=== PATIENT | female | born 1995 | race Caucasian/White ===

== ENCOUNTER 2016-04-27 14:24 | Outpatient (CLI) | payer OTHER ==
[~2016-04-27] VITALS: Ht 177.8 cm; Wt 100.0 kg
[2016-04-27 14:32] VITALS: Ht 177.8 cm; Wt 100.0 kg
[2016-04-27 14:33] VITALS: BP 118/69; PULSE 95; RESP 20
[2016-04-27] MEDS ORDERED: PREN1TAB79 PO (14:36)
--- NOTE | 2016-04-27 15:58 | TRIAGE ---
OB Triage Datetime Report Generated by CPN: 04/27/2016 15:58 Datetime: 04/27/2016 15:07 Maternal Assessment Level of Consciousness: Fully Conscious DTR's/Clonus: DTRs 2+ Headache: Denies Blurred Vision: No Nausea/Vomiting: Denies RUQ Epigastric Pain: Denies Facial Edema: None Labor Evaluation Frequency: IRREG Monitor Mode: External Quality: Mild Pattern: Normal: <= 5 Contractions in 10 Minutes Resting Tone Crouch: Relaxed Heart Rate FHR Baseline Rate: 145 Monitor Mode: External US FHR Baseline Changes: No Baseline Change Variability: Moderate 6-25 bpm Accelerations: 15X15 Decelerations: None Category: Category I Pain Assessment Pain Scale: 0 Pain Presence: None/Denies Datetime: 04/27/2016 14:24 Vaginal Exam Dilatation (cms): 2.0 Effacement (%): 50 Station: -2 Exam By: AVIS RN Vaginal Bleeding: None Cervix, Consistency: Soft Cervix, Position: Midposition Presentation 'A': Cephalic Datetime: 04/27/2016 14:21 Maternal Assessment Level of Consciousness: Fully Conscious DTR's/Clonus: DTRs 2+ Headache: Denies Blurred Vision: No Nausea/Vomiting: Denies RUQ Epigastric Pain: Denies Facial Edema: None Labor Evaluation Frequency: NONE AT THIS TIME Pattern: Normal: <= 5 Contractions in 10 Minutes Resting Tone Crouch: Relaxed Heart Rate FHR Baseline Rate: 145 Monitor Mode: External US FHR Baseline Changes: No Baseline Change Variability: Moderate 6-25 bpm Accelerations: 15X15 Decelerations: None Category: Category I Pain Assessment Pain Scale: 0 Pain Presence: None/Denies Pain Goal: 4 Membrane Status: Intact Datetime: 04/27/2016 14:20 Time of Arrival: 04/27/2016 14:20 EGA: 39.1 Arrived By: Ambulatory Arrived From: Home Chief Complaint: VAGINAL DISCHARGE Movement: Present Contractions: Denies/Absent Rupture of Membranes: Denies Vaginal Bleeding: None Patient Complaints: Other Time Provider Notified: 04/27/2016 14:21 Provider Notified: DR ROA Initial Plan: EFM,CALL DR ROA Datetime: 04/27/2016 14:19 Maternal Assessment Level of Consciousness: Fully Conscious DTR's/Clonus: DTRs 2+; No Clonus Headache: Denies Blurred Vision: No Respiratory Effort: Unlabored; Regular Rhythm; Equal Expansion Breath Sounds, Left: Clear and Equal Breath Sounds, Right: Clear and Equal Nausea/Vomiting: Denies RUQ Epigastric Pain: Denies Facial Edema: None Temperature Route: Axillary Fall Risk Assessment History of Falling: (0) No Secondary Diagnosis: (0) No Ambulatory Aid: (0) Bedrest/Nurse Assist IV Therapy: (0) No Gait: (0) Normal/Bedrest/Immobile Mental Status: (0) Oriented to Own Ability Fall Score: 0 Fall Risk Score Definition: No Risk: No action required
== END 2016-04-27 16:00 | disposition home or self-care (01) ==
LOC: OBT 14:24 → L-D 14:24 → OBT 16:00
DX: O26.893 Other specified pregnancy related conditions, third trimester (principal); N89.8 Other specified noninflammatory disorders of vagina; Z3A.39 39 weeks gestation of pregnancy
CPT/HCPCS: G0463

== ENCOUNTER 2016-05-01 04:15 | Inpatient (IN) | payer OTHER ==
[~2016-05-01] VITALS: Ht 177.8 cm; Wt 99.9 kg
[~2016-05-01 04:15] MED LIST: PREN1TAB79 PO
[2016-05-01 04:34] VITALS: BP 137/81; PULSE 76; RESP 20
[2016-05-01] MEDS ORDERED: LACTATED RINGER'S 1,000 ML IV SCH (04:39)
[2016-05-01] MEDS ORDERED: CARBOPROST 250 MCG INJ IM PRN ×2 (05:00→12:30)
[2016-05-01] MEDS ORDERED: OXYTOCIN 30 UNITS/LR 500 ML IV SCH (05:00)
[2016-05-01] MEDS ORDERED: METHYLERGONOVINE 0.2 MG INJ IM PRN ×2 (05:00→12:30)
[2016-05-01] MEDS ORDERED: AMPICILLIN 2 GM/NS (PMX) 100 ML IV ONE (05:00)
[2016-05-01] MEDS ORDERED: LIDOCAINE 1% (MPF) 30 ML INJ INJ PRN (05:00)
[2016-05-01] MEDS ORDERED: MISOPROSTOL 200 MCG TAB PR PRN ×2 (05:00→12:30)
[2016-05-01] MEDS ORDERED: OXYTOCIN 30 UNITS/LR 500 ML IV PRN ×2 (05:00→12:30)
[2016-05-01] MEDS ORDERED: LACTATED RINGER'S 1,000 ML IV PRN (05:00)
[2016-05-01] MEDS ORDERED: IBUPROFEN 600 MG TAB PO PRN (05:00)
[2016-05-01] MEDS ORDERED: BUTORPHANOL 2 MG INJ IV PRN (05:00)
[2016-05-01 05:16] LABS: BASOPHIL # 0.1 10^3/ul (0.0-0.1); BASOPHILS % 0.4 % (0.0-2.0); EOSINOPHILS # 0.1 10^3/ul (0.0-0.5); EOSINOPHILS % 0.4 % (0.0-7.0); HEMATOCRIT 38.9 % (37.0-47.0); HEMOGLOBIN 13.4 g/dl (12.0-16.0); LYMPHOCYTES # 2.2 10^3/ul (0.8-2.9); LYMPHOCYTES % 14.7 % (15.0-51.0); MEAN CORPUSCULAR HEMOGLOBIN 31.5 pg (29.0-33.0); MEAN CORPUSCULAR HGB CONC 34.3 g/dl (32.0-37.0); MEAN CORPUSCULAR VOLUME 91.8 fl (82.0-101.0); MEAN PLATELET VOLUME 7.7 fl (7.4-10.4); MONOCYTES % 6.5 % (0.0-11.0); NEUTROPHIL # 11.9 10^3/ul (1.6-7.5); PLATELET COUNT 226 10^3/UL (140-440); RED BLOOD COUNT 4.24 10^6/ul (4.20-5.40); RED CELL DISTRIBUTION WIDTH 13.8 % (11.5-14.5); UNCORRECTED WBC 15.3 10^3/ul (4.8-10.8); WHITE BLOOD COUNT 15.3 10^3/ul (4.8-10.8)
[2016-05-01] MEDS ORDERED: FENTAnyl 2MCG/ML-ROPIV 0.2% 100 ML ONE (05:17)
[2016-05-01 05:20] LABS: INR 0.84; PARTIAL THROMBOPLASTIN TIME 25.2 Sec (25.0-35.0); PROTIME 11.5 Sec (12.2-14.2); PT RATIO 0.9
[2016-05-01 05:25] LABS: CONDITION 1
--- NOTE | 2016-05-01 06:22 | HP ---
Date/Time of Note Date/Time of Note DATE: 05/01/16 TIME: 06:18 OB - History Hx of Present Chief Complaint: Contractions Estimated Due Date: May 03, 2016 : 1 Para: 0 Spontaneous : 0 Therapeutic : 0 Care: Other Obstetrical Complications: None Medical Complications: None Past Family/Social History * Past Medical, Surgical, Family and Obstetric Histories reviewed from chart. Blood Type: O+ OB Admission Exam Vital Signs Vital Signs Vital Signs Date Time Temp Pulse Resp B/P Pulse Ox O2 Delivery O2 Flow Rate FiO2 05/01/16 04:34 98.0 76 20 137/81 Room Air Physical Exam HEENT: WNL Heart: Rhythm Normal Lungs: Clear Abdomen: WNL Extremities: Normal Reflexes: Normal Cervical Dilatation: 9cm Effacement: 100% Station: -1 Membranes: Intact Heart Rate: 140's Accelerations: Accelerations Present Decelerations: No Decelerations Varibility: Moderate Contractions on Admission: < 5 Minutes Apart Last 72 hours Lab Results CBC & BMP 05/01/16 04:45 OB Assessment/Plan Reason for admission: active labor Plan: Expectant Management CHAGO VENTURA MD May 01, 2016 06:22
[2016-05-01] MEDS ORDERED: FENTAnyl 2MCG/ML-ROPIV 0.2% 100 ML BAG EPI SCH (06:30)
[2016-05-01] MEDS ORDERED: NALOXONE (0.4 MG/ML) INJ IV PRN (06:30)
[2016-05-01] MEDS ORDERED: AMPICILLIN 1 GM/NS (PMX) 50 ML IV SCH (09:00)
[2016-05-01] MEDS: OXYTOCIN 30 UNITS/LR 500 ML IV SCH ×4 (10:55→17:28)
--- NOTE | 2016-05-01 11:47 | OPRPT ---
Intraop Record Datetime Report Generated by CPN: 05/01/2016 11:47 Datetime: 05/01/2016 04:39 Drug Allergies/Reactions: No Known Allergy (05/01/2016) Datetime: 04/27/2016 14:35 Drug Allergies/Reactions: No Known Allergy (04/27/2016) Datetime: 04/27/2016 14:20 Drug Allergies/Reactions: NONE Food Allergies/Reactions: NONE Latex Allergies/Reactions: No Latex Allergies
--- NOTE | 2016-05-01 11:47 | DELSUM ---
Delivery Summary A-C Datetime Report Generated by CPN: 05/01/2016 11:47 DELIVERY PERSONNEL Plant Hr Manager: Reyna, Pratima MATERNAL INFORMATION Delivery Anesthesia: Epidural Placenta Cultured: No Maternal Complications: None LABOR SUMMARY EDC: 05/03/2016 00:00 No. Babies in Womb: 1 Attempted: No Labor Anesthesia: Epidural LABOR INFORMATION Reason for Induction: Not Applicable Onset of Labor: 04/30/2016 21:00 Oxytocin: N/A Group B Beta Strep: Negative Antibiotics # of Doses: 0 Steroids Given: None Reason Steroids Not Administered: Not Applicable MEMBRANES Membranes Rupture Method: Spontaneous Rupture of Membranes: 05/01/2016 08:51 Length of Rupture (hr): 1.58 Amniotic Fluid Color: Clear Amniotic Fluid Amount: Moderate Amniotic Fluid Odor: Normal STAGES OF LABOR Stage 3 hr: 0 Stage 3 min: 3 Total Time in Labor hr: 13 Total Time in Labor min: 29 VAGINAL DELIVERY Laceration Extension: First Degree Laceration Type: Perineal Laceration Repair: Yes Initial Vag Sponge Count: 20 Final Vag Sponge Count: 20 Initial Vag Sharps Count: 2 Final Vag Sharps Count: 2 Sponge Count Correct: Yes Sharps Count Correct: Yes BABY A INFORMATION Infant Delivery Date/Time: 05/01/2016 10:26 Method of Delivery: Vaginal Born in Route : No : N/A Forceps: N/A Vacuum Extraction: N/A Shoulder Dystocia : No SHOULDER DYSTOCIA BABY A Delivery Date/Time: 05/01/2016 10:26 PRESENTATION/POSITION BABY A Presentation: Cephalic Cephalic Presentation: Vertex Vertex Position: Left Occipital Anterior Breech Presentation: N/A PLACENTA INFORMATION BABY A Placenta Delivery Time : 05/01/2016 10:29 Placenta Method of Delivery: Spontaneous Placenta Status: Delivered SCORES BABY A Heart Rate 1 min: >100 bpm Resp Effort 1 min: Good Cry Reflex Irritability 1 min: Cough/Sneeze/Pulls Away Muscle Tone 1 min: Active Motion Color 1 min: Body [place], Extremit Blue Resuscitation Effort 1 min: Tactile Stimulation SCORE 1 MIN: 9 Heart Rate 5 min: >100 bpm Resp Effort 5 min: Good Cry Reflex Irritability 5 min: Cough/Sneeze/Pulls Away Muscle Tone 5 min: Active Motion Color 5 min: Body [place], Extremit Blue Resuscitation Effort 5 min: Tactile Stimulation SCORE 5 MIN: 9 INFORMATION BABY A Gestational Age at Delivery: 39.5 Gestational Status: Full Term- 39- 40.6 Weeks Infant Outcome : Liveborn Infant Condition : Stable Sex: Female IDENTIFICATION/MEDS BABY A ID Band Number: [id number] ID Band Location: Right Leg; Left Arm Sensor Applied: Yes Sensor Number: [id number] Sensor Location : Cord Clamp Vitamin K Given : Not Given Erythromycin Given: Not Given WEIGHT/LENGTH BABY A Infant Birthweight (gm): 3775 Weight (lb): 8 Weight (oz): 5 CORD INFORMATION BABY A No. Cord Vessels: 3 Nuchal Cord : N/A Cord Blood Taken: Yes Infant Suction: Mouth; Nose ASSESSMENT BABY A Complications: Multiple Variable Decels Physical Findings at Delivery: Within Normal Limits Respirations: Appears Normal Application Support Consultant/ALS Called : No Transferred To: Remains with Mother
[2016-05-01 12:10] VITALS: BP 115/57; PULSE 74; RESP 18
--- NOTE | 2016-05-01 12:29 | DELSUM ---
Delivery Summary A-C Datetime Report Generated by FRANKY: 05/01/2016 12:29 Estimated Blood Loss (ml): 250 Length of Rupture (hr): 1.58 Stage 3 hr: 0 Stage 3 min: 3 Total Time in Labor hr: 13 Total Time in Labor min: 29 SCORE 1 MIN: 9 SCORE 5 MIN: 9 Gestational Status: Full Term- 39- 40.6 Weeks Weight (lb): 8 Weight (oz): 5
[2016-05-01] MEDS ORDERED: ONDANSETRON 4 MG INJ IV PRN (12:30)
[2016-05-01] MEDS ORDERED: LANOLIN 7 GM TUBE TOP PRN (12:30)
[2016-05-01] MEDS ORDERED: BENZOCAINE 20% 56 ML SPRAY TOP PRN (12:30)
[2016-05-01] MEDS ORDERED: OXYCODONE/ASPIRIN (4.88/325) TAB PO PRN ×2 (12:30)
[2016-05-01] MEDS ORDERED: ACETAMINOPHEN 325 MG TAB PO PRN (12:30)
[2016-05-01] MEDS ORDERED: DIBUCAINE 1% 30 GM OINT TOP PRN (12:30)
[2016-05-01] MEDS ORDERED: ACETAMINOPHEN/CODEINE #3 TAB PO PRN ×2 (12:30)
[2016-05-01] MEDS ORDERED: WITCH HAZEL/GLYCERIN PAD PR PRN (12:30)
[2016-05-01] MEDS: IBUPROFEN 600 MG TAB PO SCH ×3 (12:30→23:33)
[2016-05-01 14:05] LABS: BARBITURATES Negative (NEGATIVE); BENZODIAZEPINES Negative (NEGATIVE)
[2016-05-01 14:06] LABS: CANNABINOIDS Negative (NEGATIVE)
[2016-05-01 14:07] LABS: COCAINE Negative (NEGATIVE); OPIATES Negative (NEGATIVE)
--- NOTE | 2016-05-01 15:38 | LDN ---
Date/Time of Note Date/Time of Note DATE: 05/01/16 TIME: 15:32 Delivery Summary Normal spontaneous vaginal delivery of a baby girl shoulders delivered without any difficulty baby's body followed cord clamped after stopped pulsation naso- oropharyngeal suction was performed baby handed to the team for immediate attention placenta spontaneous expulsion inspected complete Placenta Delivered: Spontaneously Meconium: none Perineum intact?: Yes Anesthesia type: None Sponge & Needle done & correct: Yes All needle counts correct: Yes Any foreign bodies felt in the: No Problems: Infant Delivery Information Sex Infant Sex: female Apgars 1 Minute: 9 5 Minute: 9 Suctioning Nose & mouth suctioned at costa: Yes Delee suction performed: No Umbilical Cord Umbilical cord with: 3 Vessels Cord presentations: no nuchal cord Cord Blood was obtained: Yes CARLOS ALBERTO ASKEW MD May 01, 2016 15:38
[2016-05-01 16:00] VITALS: BP 121/57; PULSE 90; RESP 18
[2016-05-01 19:40] VITALS: BP 109/61; PULSE 88; RESP 18
[2016-05-01] MEDS: SENNA/DOCUSATE NA (8.6MG/50MG) TAB PO SCH (21:28)
[2016-05-02] VITALS: BP 102/60; PULSE 89; RESP 18
[2016-05-02 04:00] VITALS: BP 99/52; PULSE 83; RESP 18
[2016-05-02] MEDS: IBUPROFEN 600 MG TAB PO SCH ×4 (05:51→23:37)
[2016-05-02 08:00] VITALS: BP 82/65; PULSE 94; RESP 20
[2016-05-02 08:28] LABS: BASOPHILS % 0.2 % (0.0-2.0); EOSINOPHILS # 0.1 10^3/ul (0.0-0.5); EOSINOPHILS % 1.2 % (0.0-7.0); HEMATOCRIT 36.6 % (37.0-47.0); HEMOGLOBIN 12.5 g/dl (12.0-16.0); LYMPHOCYTES # 2.7 10^3/ul (0.8-2.9); LYMPHOCYTES % 24.3 % (15.0-51.0); MEAN CORPUSCULAR HEMOGLOBIN 31.4 pg (29.0-33.0); MEAN CORPUSCULAR HGB CONC 34.2 g/dl (32.0-37.0); MEAN CORPUSCULAR VOLUME 91.8 fl (82.0-101.0); MEAN PLATELET VOLUME 7.4 fl (7.4-10.4); MONOCYTES % 9.2 % (0.0-11.0); NEUTROPHIL # 7.3 10^3/ul (1.6-7.5); NEUTROPHILS % 65.1 % (39.0-77.0); PLATELET COUNT 187 10^3/UL (140-440); RED BLOOD COUNT 3.98 10^6/ul (4.20-5.40); UNCORRECTED WBC 11.1 10^3/ul (4.8-10.8); WHITE BLOOD COUNT 11.1 10^3/ul (4.8-10.8)
[2016-05-02 08:32] LABS: CONDITION 1
[2016-05-02] MEDS: SENNA/DOCUSATE NA (8.6MG/50MG) TAB PO SCH ×2 (08:59→20:50)
--- NOTE | 2016-05-02 11:55 | PN ---
Date/Time of Note Date/Time of Note DATE: 05/02/16 TIME: 11:54 OB Subjective Subjective Subjective Post normal vaginal delivery day 1 Vital sign is stable afebrile abdomen soft uterus firm lochia normal extremity normal Laboratory Tests Test 05/01/16 12:32 05/02/16 08:05 Urine Amphetamines Screen Negative Urine Barbiturates Negative Urine Benzodiazepines Screen Negative Urine Cannabinoids Negative Urine Cocaine Screen Negative Urine Opiates Screen Negative Basophils # 0.010^3/ul Basophils % 0.2% Eosinophils # 0.110^3/ul Eosinophils % 1.2% Hematocrit 36.6% Hemoglobin 12.5g/dl Lymphocytes # 2.710^3/ul Lymphocytes % 24.3% Mean Corpuscular Hemoglobin 31.4pg Mean Corpuscular Hemoglobin Concent 34.2g/dl Mean Corpuscular Volume 91.8fl Mean Platelet Volume 7.4fl Monocytes # 1.010^3/ul Monocytes % 9.2% Neutrophils # 7.310^3/ul Neutrophils % 65.1% Nucleated Red Blood Cells # 0.010^3/ul Nucleated Red Blood Cells % 0.0/100WBC Platelet Count 51585^3/UL Red Blood Count 3.9810^6/ul Red Cell Distribution Width 14.0% White Blood Count 11.110^3/ul Current Medications Medications (Trade) Dose Ordered Sig/Rena Route PRN Reason Start Time Stop Time Status Last Admin Dose Admin Lactated Ringer's 1,000 ml @ 125 mls/hr Q8H IV 05/01/16 04:39 05/01/16 12:03 DC 05/01/16 04:55 Ampicillin 100 ml @ 100 mls/hr ONCE ONCE IV 05/01/16 05:00 05/01/16 05:59 DC 05/01/16 04:55 Ampicillin (Ampicillin 1 Gm/ NS (Pmx)) 50 ml @ 100 mls/hr Q4H IV 05/01/16 09:00 05/01/16 12:03 DC Butorphanol Tartrate (Stadol) 2 mg Q2H PRN IV PAIN 05/01/16 05:00 05/01/16 12:04 DC Lidocaine 30 ml 30 ml ONCE PRN INJ EPISIOTOMY/TEARING 05/01/16 05:00 05/01/16 12:04 DC Oxytocin/Lactated Ringer's 500 ml @ 125 mls/hr ONCE -MAY REPEAT X1 IV 05/01/16 05:00 05/01/16 12:04 DC 05/01/16 11:00 Oxytocin/Lactated Ringer's 500 ml @ 125 mls/hr ONCE IV 05/01/16 05:00 05/01/16 12:04 DC Ibuprofen 600 mg 600 mg ONCE PRN PO Mild Pain (Pain Score 1-3) 05/01/16 05:00 05/01/16 12:04 DC Lactated Ringer's 1,000 ml @ 2,000 mls/hr Q30M PRN IV PRE-EPIDURAL BOLUS 05/01/16 05:00 05/01/16 12:04 DC 05/01/16 05:34 Oxytocin/Lactated Ringer's 500 ml @ 0 mls/hr ONCE PRN IV For Hemorrhage Management 05/01/16 05:00 05/01/16 12:04 DC Methylergonovine Maleate (Methergine) 0.2 mg ONCE PRN IM VAGINAL BLEEDING 05/01/16 05:00 05/01/16 12:04 DC Carboprost Tromethamine (Hemabate) 250 mcg ONCE PRN IM VAGINAL BLEEDING 05/01/16 05:00 05/01/16 12:04 DC Misoprostol 1000 mcg 1,000 mcg ONCE PRN DE VAGINAL BLEEDING 05/01/16 05:00 05/01/16 12:04 DC Fentanyl/ Ropivacaine 100 ml @ ud STK-MED ONCE .ROUTE 05/01/16 05:17 05/01/16 05:18 DC Naloxone HCl (Narcan) 0.1 mg Q2M PRN IV FOR RESP RATE 8 OR LESS 05/01/16 06:30 05/01/16 12:04 DC Fentanyl/ Ropivacaine 100 ml 100 ml EPIDURAL INFUSION EPI 05/01/16 06:30 05/01/16 12:04 DC Oxytocin/Lactated Ringer's 500 ml @ 125 mls/hr Q4H IV 05/01/16 12:01 05/01/16 20:00 DC 05/01/16 17:28 Ibuprofen (Motrin) 600 mg Q6 PO 05/01/16 12:30 05/02/16 08:59 Acetaminophen (Tylenol Tab) 650 mg Q4H PRN PO PAIN LEVEL 1-5 05/01/16 12:30 Acetaminophen/ Codeine Phosphate (Tylenol No.3) 1 tab Q4H PRN PO PAIN LEVEL 1-5 05/01/16 12:30 Acetaminophen/ Codeine Phosphate (Tylenol No.3) 2 tab Q4H PRN PO PAIN LEVEL 6-10 05/01/16 12:30 Oxycodone/Aspirin (Percodan) 1 tab Q3H PRN PO PAIN LEVEL 1-5 05/01/16 12:30 05/01/16 15:30 Oxycodone/Aspirin (Percodan) 2 tab Q3H PRN PO PAIN LEVEL 6-10 05/01/16 12:30 Ondansetron HCl (Zofran Inj) 4 mg Q6H PRN IV NAUSEA AND/OR VOMITING 05/01/16 12:30 Senna/Docusate Sodium (Senokot-S) 1 tab BID PO 05/01/16 21:00 05/02/16 08:59 Witch Jennie/ Glycerin (Tucks Pads) 1 pad BEDSIDE MEDICATION PRN DE HEMORRHOID/EPISIOTMY PAIN 05/01/16 12:30 05/01/16 15:26 Benzocaine (Dermoplast Flom) 1 spray BEDSIDE MEDICATION PRN TOP HEMORRHOID/EPISIOTMY PAIN 05/01/16 12:30 05/01/16 15:27 Dibucaine (Nupercainal) 1 applic BEDSIDE MEDICATION PRN TOP HEMORRHOID/EPISIOTMY PAIN 05/01/16 12:30 Lanolin ([id number]) 1 applic BEDSIDE MEDICATION PRN TOP BEDSIDE FOR ANASTASIA TO NIPPLES 05/01/16 12:30 05/01/16 15:27 Measles/Mumps/ Rubella Vaccine Live 0.5 ml 0.5 ml ONCE ONCE SC* 05/03/16 09:00 05/03/16 09:01 Oxytocin/Lactated Ringer's 500 ml @ 0 mls/hr ONCE PRN IV For Hemorrhage Management 05/01/16 12:30 Methylergonovine Maleate (Methergine) 0.2 mg ONCE PRN IM VAGINAL BLEEDING 05/01/16 12:30 Carboprost Tromethamine (Hemabate) 250 mcg ONCE PRN IM VAGINAL BLEEDING 05/01/16 12:30 Misoprostol (Cytotec) 1,000 mcg ONCE PRN DE VAGINAL BLEEDING 05/01/16 12:30 CARLOS ALBERTO ASKEW MD May 02, 2016 11:55
[2016-05-02 16:00] VITALS: BP 109/64; PULSE 85; RESP 20
[2016-05-02 20:16] VITALS: BP 106/63; PULSE 86; RESP 18
[2016-05-03 04:27] VITALS: BP 106/58; PULSE 81; RESP 18
[2016-05-03] MEDS: IBUPROFEN 600 MG TAB PO SCH ×3 (06:03→18:05)
[2016-05-03 08:00] VITALS: BP 119/65; PULSE 77; RESP 18
[2016-05-03] MEDS: SENNA/DOCUSATE NA (8.6MG/50MG) TAB PO SCH ×2 (08:47→21:41)
[2016-05-03] MEDS ORDERED: MEASLES,MUMPS,RUBELLA VACCINE INJ SC* ONE (09:00)
[2016-05-03 16:00] VITALS: BP 128/78; PULSE 76; RESP 18
[2016-05-03 19:50] VITALS: BP 122/68; PULSE 72; RESP 18
--- NOTE | 2016-05-03 20:17 | PN ---
Date/Time of Note Date/Time of Note DATE: 05/03/16 TIME: 20:13 OB Subjective Subjective Subjective Patient doing well, not ready for discharge because baby is receiving UV therapy Otherwise, no complaints OB Objective Objective Objective Abdomen- fundus firm, n/t Ext- no edema Perineum- scant lochia OB Assessment/Plan Other Assessment: PPD#2, s/p , doing well patient to go home tomorrow EDDI SOMMER MD May 03, 2016 20:17
[2016-05-04] MEDS: IBUPROFEN 600 MG TAB PO SCH ×3 (00:22→12:00)
[2016-05-04 03:50] VITALS: BP 112/70; PULSE 68; RESP 18
[2016-05-04 08:15] VITALS: BP 114/76; PULSE 75; RESP 18
[2016-05-04] MEDS: SENNA/DOCUSATE NA (8.6MG/50MG) TAB PO SCH (09:00)
--- NOTE | 2016-05-04 15:12 | PD.PPDC ---
LOCK STITCH CHANNELER Discharge Instruction Condition Patient Condition: Good Diet Diet: Resume Regular Diet Activity/Restrictions Restrictions: No Exercising No Lifting No Driving No Sexual Activity Nothing in the Vagina No [place] No Tampons, douche Follow-up Follow-up with Physician: 2, Week/Weeks Return to clinic for CAFETERIA AIDE Instructions: Fever greater than 101 Excessive Vaginal Bleeding More than 2 pads per hour OB Instructions: Depression CARLOS ALBERTO ASKEW MD May 04, 2016 15:12
--- NOTE | 2016-05-04 15:15 | DS ---
Date/Time of Note Date/Time of Note DATE: 05/04/16 TIME: 15:13 Obstetrical Discharge Record Final Diagnosis Final Diagnosis: Term delivered Vaginal Delivery Obstetrical Delivery: Spontaneous Condition on Discharge Physical Assessment Last Vitals: Vital sign a stable afebrile abdomen soft uterus firm lochia normal extremity normal instructions given nationwide make appointment to be seen in the office in 2 weeks Current Medications Medications (Trade) Dose Ordered Sig/Rena Route PRN Reason Start Time Stop Time Status Last Admin Dose Admin Lactated Ringer's 1,000 ml @ 125 mls/hr Q8H IV 05/01/16 04:39 05/01/16 12:03 DC 05/01/16 04:55 Ampicillin 100 ml @ 100 mls/hr ONCE ONCE IV 05/01/16 05:00 05/01/16 05:59 DC 05/01/16 04:55 Ampicillin (Ampicillin 1 Gm/ NS (Pmx)) 50 ml @ 100 mls/hr Q4H IV 05/01/16 09:00 05/01/16 12:03 DC Butorphanol Tartrate (Stadol) 2 mg Q2H PRN IV PAIN 05/01/16 05:00 05/01/16 12:04 DC Lidocaine 30 ml 30 ml ONCE PRN INJ EPISIOTOMY/TEARING 05/01/16 05:00 05/01/16 12:04 DC Oxytocin/Lactated Ringer's 500 ml @ 125 mls/hr ONCE -MAY REPEAT X1 IV 05/01/16 05:00 05/01/16 12:04 DC 05/01/16 11:00 Oxytocin/Lactated Ringer's 500 ml @ 125 mls/hr ONCE IV 05/01/16 05:00 05/01/16 12:04 DC Ibuprofen 600 mg 600 mg ONCE PRN PO Mild Pain (Pain Score 1-3) 05/01/16 05:00 05/01/16 12:04 DC Lactated Ringer's 1,000 ml @ 2,000 mls/hr Q30M PRN IV PRE-EPIDURAL BOLUS 05/01/16 05:00 05/01/16 12:04 DC 05/01/16 05:34 Oxytocin/Lactated Ringer's 500 ml @ 0 mls/hr ONCE PRN IV For Hemorrhage Management 05/01/16 05:00 05/01/16 12:04 DC Methylergonovine Maleate (Methergine) 0.2 mg ONCE PRN IM VAGINAL BLEEDING 05/01/16 05:00 05/01/16 12:04 DC Carboprost Tromethamine (Hemabate) 250 mcg ONCE PRN IM VAGINAL BLEEDING 05/01/16 05:00 05/01/16 12:04 DC Misoprostol 1000 mcg 1,000 mcg ONCE PRN ID VAGINAL BLEEDING 05/01/16 05:00 05/01/16 12:04 DC Fentanyl/ Ropivacaine 100 ml @ STK-MED ONCE .ROUTE 05/01/16 05:17 05/01/16 05:18 DC Naloxone HCl (Narcan) 0.1 mg Q2M PRN IV FOR RESP RATE 8 OR LESS 05/01/16 06:30 05/01/16 12:04 DC Fentanyl/ Ropivacaine 100 ml 100 ml EPIDURAL INFUSION EPI 05/01/16 06:30 05/01/16 12:04 DC Oxytocin/Lactated Ringer's 500 ml @ 125 mls/hr Q4H IV 05/01/16 12:01 05/01/16 20:00 DC 05/01/16 17:28 Ibuprofen (Motrin) 600 mg Q6 PO 05/01/16 12:30 05/04/16 05:40 Acetaminophen (Tylenol Tab) 650 mg Q4H PRN PO PAIN LEVEL 1-5 05/01/16 12:30 Acetaminophen/ Codeine Phosphate (Tylenol No.3) 1 tab Q4H PRN PO PAIN LEVEL 1-5 05/01/16 12:30 Acetaminophen/ Codeine Phosphate (Tylenol No.3) 2 tab Q4H PRN PO PAIN LEVEL 6-10 05/01/16 12:30 Oxycodone/Aspirin (Percodan) 1 tab Q3H PRN PO PAIN LEVEL 1-5 05/01/16 12:30 05/01/16 15:30 Oxycodone/Aspirin (Percodan) 2 tab Q3H PRN PO PAIN LEVEL 6-10 05/01/16 12:30 Ondansetron HCl (Zofran Inj) 4 mg Q6H PRN IV NAUSEA AND/OR VOMITING 05/01/16 12:30 Senna/Docusate Sodium (Senokot-S) 1 tab BID PO 05/01/16 21:00 05/03/16 21:41 Witch Jennie/ Glycerin (Tucks Pads) 1 pad BEDSIDE MEDICATION PRN ID HEMORRHOID/EPISIOTMY PAIN 05/01/16 12:30 05/01/16 15:26 Benzocaine (Dermoplast Bryan) 1 spray BEDSIDE MEDICATION PRN TOP HEMORRHOID/EPISIOTMY PAIN 05/01/16 12:30 05/01/16 15:27 Dibucaine (Nupercainal) 1 applic BEDSIDE MEDICATION PRN TOP HEMORRHOID/EPISIOTMY PAIN 05/01/16 12:30 Lanolin ([id number]) 1 applic BEDSIDE MEDICATION PRN TOP BEDSIDE FOR ANASTASIA TO NIPPLES 05/01/16 12:30 05/01/16 15:27 Measles/Mumps/ Rubella Vaccine Live 0.5 ml 0.5 ml ONCE ONCE SC* 05/03/16 09:00 05/03/16 09:01 DC Oxytocin/Lactated Ringer's 500 ml @ 0 mls/hr ONCE PRN IV For Hemorrhage Management 05/01/16 12:30 Methylergonovine Maleate (Methergine) 0.2 mg ONCE PRN IM VAGINAL BLEEDING 05/01/16 12:30 Carboprost Tromethamine (Hemabate) 250 mcg ONCE PRN IM VAGINAL BLEEDING 05/01/16 12:30 Misoprostol (Cytotec) 1,000 mcg ONCE PRN ID VAGINAL BLEEDING 05/01/16 12:30 Voiding: Yes Breast: Soft, non-tender, Filling Fundus: Firm Calf Tenderness: No Patient Condition: Good CARLOS ALBERTO ASKEW MD May 04, 2016 15:15
[2016-05-04 15:50] VITALS: BP 110/65; PULSE 69; RESP 18
== END 2016-05-04 16:55 | disposition home or self-care (01) | DRG 775 ==
LOC: OBT 04:15 → L-D 04:15 → OBT 04:35 → PP1 12:13
PROVIDERS: ADMIT Obstetrics & Gynecology; ATTEND Obstetrics & Gynecology
PROC: 10E0XZZ Delivery of Products of Conception, External Approach (ICD-10-PCS; principal; 2016-05-01)
DX: O80 Encounter for full-term uncomplicated delivery (principal); Z37.0 Single live birth; Z3A.40 40 weeks gestation of pregnancy
CPT/HCPCS: 36415; 62319; 80307; 85025; 85610; 85730; 86592; 86900; 86901; 87340; 99464; G0463; J0290; J2590; J3010; J7120